=== PATIENT | female | born 1960 | race Caucasian/White ===

== ENCOUNTER 2017-08-05 10:42 | Outpatient (CLI) | payer BC ==
--- NOTE | 2017-08-05 18:12 | XRAY Report ---
LEFT HIP AND PELVIS: 08/05/2017 CLINICAL INDICATION: Pain. COMPARISON: Pelvis film 04/20/2015. FINDINGS: Frontal view of the hips and pelvis and frogleg lateral view of the left hip demonstrate m ild left hip osteoarthritis. There is no evidence of fracture. Right osteoarthritis is again noted. IMPRESSION: MILD LEFT HIP OSTEOARTHRITIS. JOB #: [id number] EXT JOB #:[id number]
== END 2017-08-05 10:43 | disposition home or self-care (01) ==
LOC: DI.S 10:42
PROVIDERS: ATTEND Family Medicine
DX: M16.12 Unilateral primary osteoarthritis, left hip (principal)

== ENCOUNTER 2017-10-08 14:45 | Outpatient (CLI) | payer BC ==
--- NOTE | 2017-10-08 16:58 | MRI Report ---
EXAM: LEFT HIP MRI WITHOUT CONTRAST EXAM DATE: 10/08/2017 03:51 PM. CLINICAL HISTORY: Left hip pain for 6 months, which has been getting worse. COMPARISON: Left hip radiography from 08/05/2017. TECHNIQUE: Multiplanar, multisequence T1-weighted and fluid-sensitive, small [id number] sequences of the hip and large mcdko-fh-cdet sequences of the pelvis without contrast. Other: None. FINDINGS: Bones: Small subcortical cysts and subchondral marrow edema at the anterior and superior aspects of t he left acetabulum. No acute fracture or bone lesions. Small to moderate-sized marginal osteophytes a t the right femoral head and small marginal osteophytes at the left femoral head. Mild subchondral ma rrow edema at the right acetabulum and right femoral head. Small marginal osteophytes at the acetabul ums. Left Hip: No acetabular retroversion. Femoral head/neck offset is within normal limits. No effusion o r loose bodies. Grade 2-3 chondromalacia. Tear at the anterior aspect of the left acetabular labrum. Paralabral cyst adjacent to the anterosuperior and anterior aspects of the left acetabular labrum. Th e ligamentum teres is intact. Other Joints: Degenerative disk changes and osteophytosis at the visualized lower lumbar spine. The s acroiliac joints and pubic symphysis are unremarkable. Moderate to severe right hip osteoarthritis. S mall paralabral cyst adjacent to the posterior superior aspect of the right acetabulum. Musculature: No edema or fatty atrophy. The gluteus medius and minimus tendons are normal. The visua lized hamstring tendons are normal. The ischiofemoral space is normal. Pelvic Cavity: The visualized viscera are unremarkable. No lymphadenopathy. No free fluid in the pelv is. Other: The visualized sciatic nerves are unremarkable. No bursitis. Mildly enlarged right inguinal ly mph node measuring 1.3 x 1.3 cm in the short axis dimension. IMPRESSION: 1. Bilateral hip osteoarthritis, right more than left. 2. Tear at the anterior aspect of the left acetabular labrum. Paralabral cyst adjacent to the anterio r and anterior superior aspects of the left acetabular labrum. 3. Degenerative disk changes at the visualized lower lumbar spine. 4. Small paralabral cyst adjacent to the posterior superior aspect of the right acetabulum. Usually, paralabral cysts are associated with labral tears. 5. Mildly enlarged right inguinal lymph node. [facility] MUSCULOSKELET[facility] SECTION Referring Provider Line: [phone] SITE ID: [id number]
== END 2017-10-08 14:46 | disposition home or self-care (01) ==
LOC: DI 14:45
PROVIDERS: ATTEND Orthopaedic Surgery
DX: M16.0 Bilateral primary osteoarthritis of hip (principal); S73.192A Other sprain of left hip, initial encounter; M24.852 Other specific joint derangements of left hip, not elsewhere classified

== ENCOUNTER 2019-07-01 18:28 | Emergency (ER) | payer BC, OTHER ==
[2019-07-01] MEDS ORDERED: SODIUM CHLORIDE 0.9% 1,000 ML IV ONE (19:06)
[2019-07-01] MEDS ORDERED: LIDOCAINE VISCOUS 2% 15 ML UDC MM STA (19:07)
[2019-07-01] MEDS ORDERED: MAG HYDROX/AL HYDROX/SIMETH 30 ML UDC PO STA (19:07)
--- NOTE | 2019-07-01 19:11 | ED Physician Documentation ---
History of Present Illness - Stated complaint Stated Complaint: FATIGUE/FEM - Chief complaint Chief Complaint: General - History obtained from History obtained from: Patient - History of Present Illness Timing: Yesterday (This is a very healthy 58-year-old woman who returned from a 5-day backpacking trip in the [employer] yesterday. It was quite strenuous and while there she ate mostly freeze dried food. Over the last day or 2 of the trip and especially yesterday she has felt ill with profound fatigue. [place]- colored urine. She feels bloated but no abdominal pain. She has poor appetite and some epigastric fullness after eating. There is no associated fevers or chills. She has very mild right flank pain with this. No tick bites while she was out there, she was in the [employer]. No sick contacts.) Review of Systems Ten Systems: 10 systems reviewed and negative Constitutional: reports: Myalgias, Fatigue, Weight Loss. denies: Fever, Chills Nose: denies: Rhinorrhea / runny nose, Congestion, Foreign Body Cardiac: denies: Chest pain / pressure, Palpitations Respiratory: denies: Dyspnea, Cough GI: reports: Nausea, Constipation (But had a good BM yesterday). denies: Abdominal Pain, Vomiting, Diarrhea, Hematemesis, Bloody / black stool : denies: Dysuria, Frequency Musculoskeletal: denies: Neck pain, Back pain PD PAST MEDICAL HISTORY - Past Medical History Cardiovascular: None Respiratory: None Endocrine/Autoimmune: None : None HEENT: None Psych: None Musculoskeletal: None Derm: None - Past Surgical History Past Surgical History: No - Present Medications Home Medications: Ambulatory Orders Medication Instructions Recorded Confirmed Cyclobenzaprine [Flexeril] 10 mg PO TID PRN #20 tablet 07/01/19 Ondansetron Odt [Zofran] 4 mg TL Q6H PRN #10 tablet 07/01/19 - Allergies Allergies/Adverse Reactions: Allergies Allergy/AdvReac Type Severity Reaction Status Date / Time sulfabenzamide AdvReac Unknown Rash Verified 06/02/13 13:06 phenazopyridine AdvReac Emesis Verified 07/01/19 18:47 [From Pyridium] - Social History Does the pt smoke?: No Smoking Status: Former smoker Does the pt drink ETOH?: No Does the pt have substance abuse?: No - Family History Family history: reports: Non contributory - Immunizations Immunizations are current?: Yes - POLST Patient has POLST: No PD ED PE NORMAL - Vitals Vital signs reviewed: Yes - General General: Alert and oriented X 3, No acute distress - HEENT HEENT: PERRL, EOMI - Neck Neck: Supple, no meningeal sign, No bony TTP - Cardiac Cardiac: RRR, No murmur - Respiratory Respiratory: No respiratory distress, Clear bilaterally - Abdomen Abdomen: Normal bowel sounds, Soft, Non tender - Back Back: No CVA TTP, No spinal TTP - Derm Derm: Normal color, Warm and dry - Extremities Extremities: No edema, No calf tenderness / cord - Neuro Neuro: Alert and oriented X 3, Normal speech - Psych Psych: Normal mood, Normal affect Results - Vitals Vitals: Vital Signs - 24 hr 07/01/19 07/01/19 07/01/19 18:42 20:01 21:36 Temperature 36.3 C L 36.9 C Heart Rate 69 58 L 61 Respiratory 15 16 14 Rate Blood Pressure 106/71 97/70 108/72 O2 Saturation 97 97 99 07/01/19 23:08 Temperature Heart Rate 63 Respiratory 12 Rate Blood Pressure 95/58 L O2 Saturation 96 Oxygen O2 Source Room air - EKG (time done) 1937 Rate: Rate (enter#) (55) Rhythm: NSR [place]: Normal Intervals: Other (IVCD) QRS: Normal Ischemia: Normal ST segments Computer interpretation: Agree with computer - Labs Labs: Laboratory Tests 07/01/19 07/01/19 07/01/19 19:30 19:30 19:30 WBC 3.0 L RBC 4.50 Hgb 13.5 Hct 39.8 MCV 88.4 MCH 30.0 MCHC 33.9 RDW 13.6 Plt Count 198 MPV 9.4 Neut # (Auto) 1.3 L Lymph # (Auto) 1.1 L [place] # (Auto) 0.4 Eos # (Auto) 0.1 Baso # (Auto) 0.0 Absolute Nucleated RBC 0.00 Nucleated RBC % 0.0 Sodium 136 Potassium 3.6 Chloride 104 Carbon Dioxide 25 Anion Gap 7.0 BUN 7 Creatinine 0.6 Estimated GFR (MDRD) 103 Glucose 113 H Calcium 8.7 Total Bilirubin 2.4 H Direct Bilirubin AST 915 H ALT 981 H Alkaline Phosphatase 127 H Total Creatine Kinase 151 Troponin I High Sens 2.6 Total Protein 7.0 Albumin 3.7 Globulin 3.3 Albumin/Globulin Ratio 1.1 Lipase 34 Urine Color Urine Clarity Urine pH Ur Specific [place] Urine Protein Urine Glucose (UA) Urine Ketones Urine Occult Blood Urine Nitrite Urine Bilirubin Urine Urobilinogen Ur Leukocyte Esterase Ur Microscopic Review Urine Culture Comments 07/01/19 07/01/19 19:30 19:30 WBC RBC Hgb Hct MCV MCH MCHC RDW Plt Count MPV Neut # (Auto) Lymph # (Auto) [place] # (Auto) Eos # (Auto) Baso # (Auto) Absolute Nucleated RBC Nucleated RBC % Sodium Potassium Chloride Carbon Dioxide Anion Gap BUN Creatinine Estimated GFR (MDRD) Glucose Calcium Total Bilirubin Direct Bilirubin 1.7 H AST ALT Alkaline Phosphatase Total Creatine Kinase Troponin I High Sens Total Protein Albumin Globulin Albumin/Globulin Ratio Lipase Urine Color YELLOW Urine Clarity CLEAR Urine pH 6.0 Ur Specific [place] <=1.005 Urine Protein NEGATIVE Urine Glucose (UA) NEGATIVE Urine Ketones NEGATIVE Urine Occult Blood NEGATIVE Urine Nitrite NEGATIVE Urine Bilirubin NEGATIVE Urine Urobilinogen 0.2 (NORMAL) Ur Leukocyte Esterase NEGATIVE Ur Microscopic Review NOT INDICATED Urine Culture Comments NOT INDICATED - Rads (name of study) CT abd Radiology: EMP read contemporaneously (1. There appears to be periportal edema. This was present on the prior. Multiple calcified gallstones again noted. There appears to be a small amount of pericholecystic fluid and/or gallbladder wall edematous thickening. Acute cholecystitis could be present. Correlate clinically. A right upper quadrant ultrasound could be obtained to further evaluate. This could be related to the periportal edema. 2. There is a cystic mass located inferior to the pancreatic body and tail, could be exophytic mass off the pancreas versus a separate cystic mass. This cystic mass measures 4.8 cm, unchanged in size compared to the prior. There is new calcification at the wall of this cystic mass. 3. Round low-density mass at the spleen measures 1.7 cm and this appears unchanged from the prior, could represent a splenic cyst. 4. Grade 1 anterolisthesis at L4-L5 measures 6 mm, increased compared to the prior. Large L4-L5 facet arthropathy.) PD MEDICAL DECISION MAKING - ED course ED course: 58-year-old woman with fatigue, orange urine and a bunch of other nonspecific symptoms. Found to have an acute hepatitis. No mushroom intake, and significant Tylenol intake. Does not drink alcohol. Of note 30 years ago she was rejected from a blood draw/donation due to some sort of hepatitis antibodies.\ After the CT Case was discussed by phone Dr. Nancy Alexandra who feels that this is likely a viral process. Eventually she may need her gallbladder out, but not in the midst of this acute process. Departure - Departure Disposition: 01 Home, Self Care Clinical Impression: Acute hepatitis Condition: Good Record reviewed to determine appropriate education?: Yes Instructions: ED Hepatitis Viral Type Pending Follow-Up: Nancy Alexandra MD [Provider Admit Priv/Credential] - Prescriptions: Cyclobenzaprine [Flexeril] 10 mg PO TID PRN #20 tablet PRN Reason: Spasms Ondansetron Odt [Zofran] 4 mg TL Q6H PRN #10 tablet PRN Reason: Nausea / Vomiting Comments: Avoid Tylenol and Tylenol containing medications. Try to eat at least moderate protein diet. Follow-up with Lisbeth Vail Wednesday or Wednesday for recheck, repeat labs, and hepatitis viral type results. Return for new worsening symptoms. Follow-up with the surgeon for evaluation for possible cholecystectomy. Discharge Date/Time: 07/01/19 23:12
[2019-07-01 19:40] LABS: HGB - HEMOGLOBIN 13.5 g/dL (12.0-16.0); MEAN PLATELET VOLUME 9.4 fL (7.9-10.8)
[2019-07-01 19:41] LABS: BILIRUBIN,URINE NEGATIVE (NEGATIVE); GLUCOSE, URINE (UA) NEGATIVE (NEGATIVE); KETONES,URINE (UA) NEGATIVE (NEGATIVE); LEUKOCYTE ESTERASE, URINE NEGATIVE (NEGATIVE); NITRITE,URINE NEGATIVE (NEGATIVE); OCCULT BLOOD,URINE NEGATIVE (NEGATIVE); PROTEIN,URINE NEGATIVE (NEGATIVE); UROBILINOGEN,URINE 0.2 (NORMAL) E.U./dL (NORMAL)
[2019-07-01 19:42] LABS: CLARITY,URINE CLEAR (CLEAR)
[2019-07-01 19:44] LABS: EOSINOPHILS # (AUTO) 0.1 10^3/uL (0.0-0.7); EOSINOPHILS % (AUTO) 4.7 %; LYMPHOCYTES # (AUTO) 1.1 10^3/uL (1.5-3.5); LYMPHOCYTES % (AUTO) 36.9 %; MEAN CORPUSCULAR HGB CONC 33.9 g/dL (32.0-36.0); MEAN CORPUSCULAR VOLUME 88.4 fL (81.0-99.0); MONOCYTES # (AUTO) 0.4 10^3/uL (0.0-1.0); MONOCYTES % (AUTO) 13.9 %; NEUTROPHILS # (AUTO) 1.3 10^3/uL (1.5-6.6); NEUTROPHILS % (AUTO) 43.5 %; PLT - PLATELET COUNT 198 10^3/uL (130-450); RED CELL DISTRIBUTION WIDTH 13.6 % (12.0-15.0)
[2019-07-01 19:57] LABS: ALBUMIN 3.7 g/dL (3.2-5.5); ALBUMIN/GLOBULIN RATIO 1.1 (1.0-2.2); BILIRUBIN,TOTAL 2.4 mg/dL (0.2-1.0); CALCIUM 8.7 mg/dL (8.5-10.3); CREATININE 0.6 mg/dL (0.4-1.0)
[2019-07-01] MEDS ORDERED: IOVERSOL 320 100 ML VIAL IVP ONE ×2 (20:35→21:40)
--- NOTE | 2019-07-01 21:49 | CT Report ---
Reason: painless jaundice Procedure Date: 07/01/2019 Accession Number: [id number] / [id number] Procedure: CT - ABDOMEN W CPT Code: FULL RESULT: EXAM: CT ABDOMEN WITH IV CONTRAST EXAM DATE: 07/01/2019 08:59 PM. CLINICAL HISTORY: Painless jaundice. COMPARISON: ABDOMEN/PELVIS W/ 06/02/2013. TECHNIQUE: Routine helical CT imaging was performed through the abdomen. IV contrast: Optiray 320, 100 mL Enteric contrast: No. Reconstruction: Coronal and sagittal. In accordance with CT protocol optimization, one or more of the following dose reduction techniques were utilized for this exam: automated exposure control, adjustment of mA and/or KV based on patient size, or use of iterative reconstructive technique. FINDINGS: Lung bases: Minimal scarring suspected at the right middle lobe, unchanged. Liver: There appears to be periportal edema. No focal liver lesions are seen. Gallbladder: Multiple calcified gallstones, largest measures 6 mm. There appears to be a small amount of pericholecystic fluid and/or gallbladder wall edematous thickening. Acute cholecystitis could be present. Correlate clinically. A right upper quadrant ultrasound could be obtained to further evaluate. This could be related to the periportal edema. Common duct: No common duct dilatation. Pancreas: There is a cystic mass located inferior to the pancreatic body and tail, could be exophytic mass off the pancreas versus a separate cystic mass. This cystic mass measures 4.8 cm, unchanged in size compared to the prior. There is new calcification at the wall of this cystic mass. Spleen: Round low-density mass at the spleen measures 1.7 cm and this appears unchanged from the prior, could represent a splenic cyst. Adrenals: Unremarkable. Kidneys: No hydronephrosis. A few tiny hypodensities left kidney. Bowel: Moderate amount of stool in the colon. No dilated bowel loops are seen. No free fluid or free air. Bones: No acute bone findings are seen. Grade 1 anterolisthesis at L4-L5 measures 6 mm, increased compared to the prior. Large L4-L5 facet arthropathy. Vasculature: No acute findings. IMPRESSION: 1. There appears to be periportal edema. This was present on the prior. Multiple calcified gallstones again noted. There appears to be a small amount of pericholecystic fluid and/or gallbladder wall edematous thickening. Acute cholecystitis could be present. Correlate clinically. A right upper quadrant ultrasound could be obtained to further evaluate. This could be related to the periportal edema. 2. There is a cystic mass located inferior to the pancreatic body and tail, could be exophytic mass off the pancreas versus a separate cystic mass. This cystic mass measures 4.8 cm, unchanged in size compared to the prior. There is new calcification at the wall of this cystic mass. 3. Round low-density mass at the spleen measures 1.7 cm and this appears unchanged from the prior, could represent a splenic cyst. 4. Grade 1 anterolisthesis at L4-L5 measures 6 mm, increased compared to the prior. Large L4-L5 facet arthropathy. 5. See above. [facility]
[2019-07-01] MEDS ORDERED: ONDANSETRON 4 MG/2 ML VIAL IVP STA (21:54)
[2019-07-01] MEDS ORDERED: ONDANSETRON ODT 4 MG Prepack 2 TL STA (22:49)
[2019-07-01] MEDS ORDERED: CYCLOBENZAPRINE 10 MG Prepack 2 PO PRN (22:49)
[2019-07-01 23:09] VITALS: BP 95/58
[2019-07-05 15:26] LABS: HEPATITIS A IGM NON-REACTIVE (NON-REACTIVE); HEPATITIS B SURFACE ANTIGEN NON-REACTIVE (NON-REACTIVE); HEPATITIS C ANTIBODY NON-REACTIVE (NON-REACTIVE)
== END 2019-07-01 23:12 | disposition home or self-care (01) ==
LOC: ED 18:28
DX: B17.9 Acute viral hepatitis, unspecified (principal); K80.20 Calculus of gallbladder without cholecystitis without obstruction; Z87.891 Personal history of nicotine dependence
CPT/HCPCS: 36415; 74160; 80053; 80074; 81003; 82248; 82550; 83690; 84484; 85025; 93005; 96361; 96374; 99283; 99284; A9270; Q9967; 81001; 87086